=== PATIENT | male | born 1940 | race Caucasian/White ===

== ENCOUNTER 2023-05-02 12:30 | Inpatient (IN) | payer MEDICARE, OTHER ==
[~2023-05-02] VITALS: Ht 177.8 cm; Wt 89.4 kg
[2023-05-02] VITALS (14 sets, daily range): BP systolic 68–171; BP diastolic 42–102
[2023-05-02 13:04] LABS: PCO2 Arterial 48.7 mmHg (35-45); PO2 Arterial 38 mmHg (80-100); pH Blood Arterial 6.96 (7.35-7.45)
[2023-05-02 13:23] LABS: BASOPHILS ABSOLUTE AUTO 0.13 K/mm3 (0.00-0.23); BASOPHILS PERCENT AUTO 1 % (0-2); Hematocrit 40.5 % (37.0-53.0); Hemoglobin 12.4 g/dL (13.5-17.5); LYMPHOCYTES ABSOLUTE AUTO 5.29 K/mm3 (0.84-5.20); LYMPHOCYTES PERCENT AUTO 29 % (21-46); MONOCYTES ABSOLUTE AUTO 0.46 K/mm3 (0.16-1.47); MONOCYTES PERCENT AUTO 3 % (4-13); Mean Corpuscular HGB 32.2 pg (26.0-34.0); Mean Corpuscular HGB Conc 30.6 g/dL (31.5-36.5); Mean Corpuscular Volume 105 fL (80-100); Mean Platelet Volume 10.4 fL (9.1-12.4); NRBC ABSOLUTE 0.02 K/mm3 (0.00-0.02); NRBC Auto 0.1 /100 WBC (0.0-0.2); Platelet Count 201 K/mm3 (150-400); RDW Coefficient Variation 12.4 % (11.7-14.2); RDW Standard Deviation 48.6 fL (35.1-46.3); Red Blood Cell Count 3.85 M/mm3 (4.30-5.90); White Blood Cell Count 18.29 K/mm3 (4.00-11.30)
--- NOTE | 2023-05-02 13:25 | NUR ---
Pt. is intubated and being treated in ED26. AMISHA Philippe is in consult room and she welcomes my visit. Facilitate a short life review and update. Normalized the Pt. experience. LP displayed evidencee of genuine concern. Stay in consult room for some time. LP verbalized gratitude for the spiritual care visit. Will remain available to Pt. and family.
[2023-05-02 13:49] LABS: Albumin, Blood 2.4 g/dL (3.4-5.0); Albumin/Globulin Ratio 0.7 (0.8-1.8); Bilirubin, Total 0.4 mg/dL (0.1-1.0); Bun/Creatinine Ratio 30.2 (12.0-20.0); Creatinine, Blood 1.72 mg/dL (0.60-1.20); Globulin, Blood 3.5 g/dL (2.2-4.0); Potassium, Blood 4.8 mmol/L (3.5-5.5); Total Protein, Blood 5.9 g/dL (6.4-8.2)
[2023-05-02] MEDS ORDERED: NOVOLOG100 UNIT/2 SC (15:04)
[2023-05-02] MEDS ORDERED: LEVEMIR100 UNIT/1 SC (15:04)
[2023-05-02] MEDS ORDERED: LOSA50 PO (15:05)
[2023-05-02] MEDS ORDERED: TOPROL XL50 MG PO (15:05)
[2023-05-02] MEDS ORDERED: LEVOTHYROXINE13 MCG PO (15:13)
[2023-05-02] MEDS ORDERED: METF500 PO (15:13)
[2023-05-02 15:16] LABS: EOSINOPHILS ABSOLUTE AUTO 0.26 K/mm3 (0.00-0.68); EOSINOPHILS PERCENT AUTO 1 % (0-6); IMMATURE GRAN ABSOLUTE AUTO 1.31 K/mm3 (0.00-0.10); IMMATURE GRAN PERCENT AUTO 7 % (0-1); NEUTROPHILS ABSOLUTE AUTO 10.84 K/mm3 (1.96-9.15); NEUTROPHILS PERCENT AUTO 59 % (41-73)
[2023-05-02] MEDS ORDERED: FURO20 PO (15:27)
[2023-05-02] MEDS ORDERED: Aspir 8181 MG PO (15:27)
[2023-05-02] MEDS ORDERED: Amlodipine Bes2.5 MG PO (15:27)
[2023-05-02] MEDS ORDERED: ZOCOR20 MG PO (15:28)
[2023-05-02 16:00] LABS: BAND PERCENT MAN 12 % (0-8); BASOPHILS PERCENT MAN 0 % (0-2); EOSINOPHILS PERCENT MAN 0 % (0-6); LYMPHOCYTES ABSOLUTE MAN 4.93 K/mm3 (0.84-5.20); LYMPHOCYTES PERCENT MAN 27 % (21-46); METAMYELOCYTE ABSOLUTE MAN 0.36 K/mm3 (0.00-0.00); METAMYELOCYTE PERCENT MAN 2 % (0-0); MONOCYTES PERCENT MAN 0 % (4-13); MYELOCYTE ABSOLUTE MAN 0.54 K/mm3 (0.00-0.00); MYELOCYTE PERCENT MAN 3 % (0-0); NEUTROPHILS ABSOLUTE MAN 12.43 K/mm3 (1.96-9.15); SEG NEUTROPHILS PERCENT MAN 56 % (41-73); TOTAL CELLS COUNTED 100
--- NOTE | 2023-05-02 16:26 | NUR ---
SHIFT SUMMARY PT HAS BEEN RESTING IN BED THROUGHOUT THE DAY. SHE HASN'T HAD ANY RETCHING SINCE RECEIVING COMPAZINE THIS MORNING. SHE STILL IS NOT TAKING PO THOUGH. INSULIN GTT TURNED OFF AT NOON. IV FLUIDS SWITCHED TO NS AFTER 1600 BLOOD SUGAR WAS ABOVE [address] CROWDER EARLIER IN THE DAY. LUNGS ARE CLEAR, RA, SINUS TACH IN THE LOW 100S, BP STABLE. VOIDING INDEPENDENTLY. CONTINUING TO MONITOR.
--- NOTE | 2023-05-02 16:41 | NUR ---
"Spiritual Care | Palliative Nurse Request Pt. is in ED26. Daughter is present and activiely grieving. Facilitate life review and inquire about matters of lisa and belief of Pt. Daughter was unsettled about making the Pt. DNR without consulting family. Prayed over the Pt. and prayed for the family. Grandson arrived, and said goodbye to the Pt. Pt. is transerred to ICU13. Daughter has stepped outside to talk with family. Followed Pt. to ICU. Will remain available to Pt. and family."
--- NOTE | 2023-05-02 16:54 | NUR ---
Spoke with Dr Hemphill and discussed case. Pt to the ED due to cardiac arrest. Pt was down for approximately one hour. Pt's family may benefit from code status discussion. Pt resting on gurney, intubated, not sedated, and unresponsive. Pt's daughter Cici at bedside. This PC RN accompanied by PC RN Alissa. Supportive visit offered and confirmed daughters thoughts regarding Pt's prognosis. Discussed code status wishes and implications to performing CPR. Listened as daughter is wanting to speak with family regarding goals of care including code status. Supportive visit continued and listened as daughter discusses Pt's different family members. Daughter Cici reports her brother (Pt's son) has developmental delays and Pt's life partner Caro had to take him home due to being oeverwhelmed. Pt being transfered to ICU. Instructed Cici Palliative Care will F/U once Pt is in ICU. Spoke with Primary RN Dr Nasir Hahn and discussed case. Palliative Care will remain available
--- NOTE | 2023-05-02 17:41 | NUR ---
Spiritual Care Family Support Sat with Pts. daughter as Pt. was getting settled in ICU13. Discussions regarding a DNR decision were considered with daughter, and she felt more open to make a decision. Dr. Best met with daughter and throughly but gently communicated the serious condition the Pt. is in. The daughter werbalized to Dr. Best that she would like to "give it a day", but if the Pts. heart stopped to not impliment CPR. We brought daughter in to see the Pt. Daughter verbalized gratitude for the spiritual care support.
--- NOTE | 2023-05-02 18:00 | NUR ---
ADMIT PT ARRIVED FROM ED INTUBATED WITH LEVOPHED AND DOPAMINE INFUSING. PT NOT ON ANY SEDATION, LYING STILL WITH EYES OPEN, SPORADIC ARM TWITCHING OCCURRING AND AT THE SAME TIME PT'S EYES OPEN WIDER, THEN RELAX. DR. RUBIO TO THE BEDSIDE TO ASSESS PT. PUPILS FIXED AND DILATED, WITHDRAWS ARM FROM NAIL BED PRESSURE, BREATHING OVER THE VENTILATOR. 2MG ATIVAN GIVEN PER DR. RUBIO'S VO IN CASE THE TWITCHING IS SEIZURE ACTIVITY AND PROPOFOL STARTED. TWITCHING RESOLVED WITH THE ATIVAN. WITH PT LYING STILL, PULSE OX IS ABLE TO READ AND SPO2 LOW 90S. DR. RUBIO ALSO ORDERED TO START VASOPRESSIN AND TITRATE OFF DOPAMINE ABLE. PT'S GIOVANNA AT THE BEDSIDE AFTER HAVING DISCUSSION WITH DR. RUBIO.
--- NOTE | 2023-05-02 19:33 | NUR ---
ASSUMED CARE OF PT AT 1900 PT REMAINS ON VENTILATOR WITH NO PURPOSEFUL MOVEMENT. SOME MOVEMENT NOTED SIMILAR TO DECORTICATE POSTURING. PT DAUGHTER AT BEDSIDE DURING SHIFT REPORT. SOME REPORT DONE OUTSIDE OF ROOM D/T OBVIOUS STRESS OF DAUGHTER AT THIS TIME. DAUGHTER INVOLVED WITH SOME OF REPORT AND STATES THAT SHE IS AWARE OF HIS CURRENT DECLINE IN HEART RATE AND BP. SEE FULL ASSESSMENT FOR FURTHER INFORMATION.
[2023-05-03] VITALS (59 sets, daily range): BP systolic 74–163; BP diastolic 42–68
[2023-05-03] LABS: Glucose, Blood 664 mg/dL (70-99)
--- NOTE | 2023-05-03 01:06 | NUR ---
TEMP INCREASE PT TEMP HAS GRADUALLY INCREASED DURING STAY. SINCE THIS RN SHIFT START GLORIA BAGS AND FAN HAVE BEEN APPLIED TO PT GROIN AND AXILLARY AREAS. TYLENOL SUPPOSITORY GIVEN. TEMP CONTINUES TO INCREASE. COOLING BLANKET HAS BEEN INITIATED AT 0030. WILL CONTINUE TO MONITOR.
[2023-05-03 02:55] LABS: Glucose, Blood 678 mg/dL (70-99)
[2023-05-03 04:25] LABS: BASOPHILS ABSOLUTE AUTO 0.07 K/mm3 (0.00-0.23); BASOPHILS PERCENT AUTO 0 % (0-2); EOSINOPHILS ABSOLUTE AUTO 0.01 K/mm3 (0.00-0.68); EOSINOPHILS PERCENT AUTO 0 % (0-6); Hematocrit 35.5 % (37.0-53.0); Hemoglobin 11.6 g/dL (13.5-17.5); IMMATURE GRAN ABSOLUTE AUTO 0.28 K/mm3 (0.00-0.10); IMMATURE GRAN PERCENT AUTO 1 % (0-1); LYMPHOCYTES ABSOLUTE AUTO 1.15 K/mm3 (0.84-5.20); LYMPHOCYTES PERCENT AUTO 4 % (21-46); MONOCYTES ABSOLUTE AUTO 0.71 K/mm3 (0.16-1.47); MONOCYTES PERCENT AUTO 3 % (4-13); Mean Corpuscular HGB 32.3 pg (26.0-34.0); Mean Corpuscular HGB Conc 32.7 g/dL (31.5-36.5); Mean Platelet Volume 10.2 fL (9.1-12.4); NEUTROPHILS ABSOLUTE AUTO 24.04 K/mm3 (1.96-9.15); NEUTROPHILS PERCENT AUTO 92 % (41-73); NRBC ABSOLUTE 0.02 K/mm3 (0.00-0.02); NRBC Auto 0.1 /100 WBC (0.0-0.2); Platelet Count 189 K/mm3 (150-400); RDW Coefficient Variation 12.6 % (11.7-14.2); RDW Standard Deviation 45.5 fL (35.1-46.3); Red Blood Cell Count 3.59 M/mm3 (4.30-5.90); White Blood Cell Count 26.26 K/mm3 (4.00-11.30)
[2023-05-03 04:26] LABS: Bicarbonate Venous 13.3 mmol/L (24.0-30.0); pH Blood Venous 7.16 (7.34-7.37)
[2023-05-03 04:27] LABS: Mean Corpuscular Volume 99 fL (80-100)
[2023-05-03 05:03] LABS: Albumin, Blood 2.4 g/dL (3.4-5.0); Albumin/Globulin Ratio 0.8 (0.8-1.8); Bilirubin, Total 0.4 mg/dL (0.1-1.0); Bun/Creatinine Ratio 23.3 (12.0-20.0); Calcium, Blood 7.3 mg/dL (8.5-10.1); Creatinine, Blood 2.79 mg/dL (0.60-1.20); Potassium, Blood 7.1 mmol/L (3.5-5.5); Total Protein, Blood 5.4 g/dL (6.4-8.2)
[2023-05-03 06:39] LABS: Anion Gap 13 mmol/L (6-16); Blood Urea Nitrogen 65 mg/dL (8-24); Bun/Creatinine Ratio 22.8 (12.0-20.0); CO2, Blood 18 mmol/L (21-32); Calcium, Blood 7.1 mg/dL (8.5-10.1); Chloride, Blood 106 mmol/L (98-108); Creatinine, Blood 2.85 mg/dL (0.60-1.20); Glomerular Filtration Rate 22 (60-); Sodium, Blood 137 mmol/L (136-145)
[2023-05-03 06:40] LABS: Glucose, Blood 657 mg/dL (70-99)
--- NOTE | 2023-05-03 06:44 | NUR ---
END OF SHIFT SUMMARY PT STILL NOT FOLLOWING COMMANDS. PUPILS 3 GEOVANY WITH SLUGISH RETRACTION. RESPONDS TO PAINFUL STIMULI. PT DAUGHTER AT BEDSIDE ALL NIGHT. PT IS STILL WITH ANY REPOSITIONING OR TOUCH. PUSHS OR ULL WITH TOUCH OR TREATMENTS. EYES OPEN RANDOMLY BUT NOT WHEN TALKED TO. RESTRAINTS INITIATED THIS SHIFT D/T MOVEMENT OF HANDS TOWARDS VENT. CARDIAC- HR 30'S-40'S. VASOPRESSIN RUNNING WITH LEVOPHED AT 25 MCG SBP >100. SV ABDIEL THIS AM (THIS HAS CHANGED FROM AFIB AND MULTIPLE EXTOPY AT START OF SHIFT. RESP- REMAINS VENTILATED WITH SPO2 >93%. VENT SUCTION SPUTUM BROWN BLOOD WITH SOME RED TINGE. GI,- BERRY CATH DRAINING TO GRAVITY WITH SCAN URINE OUTPUT OF 250 THIS SHIFT. IV MEDICATIONS- LEVOPHED 25 MCG VASOPRESSIN 0.04 BICARB 75 MLS/HR. INSULIN 5 UNITS/HOUR. PROP 10 MCG WILL CONTINUE TO MONITOR UNTIL REPORT GIVEN TO AM RN.
[2023-05-03 08:21] LABS: Glucose, Blood 564 mg/dL (70-99)
--- NOTE | 2023-05-03 10:00 | NUR ---
PT INTUBATED AND LIGHTLY SEDATED WITH PROPOFOL. PT WILL OPEN EYE'S SPONT BUT DOES NOT TRACK. WITHDRAWS FROM PAINFUL STIMULUS. SPONT MOVES HANDS AND FEET. TITRATING LEVOPHED, ON VASOPRESSIN, AND DOPAMINE STARTED. PT IS BRADYCARDIC. DAUGHTER AT BEDSIDE EDUCATED PRN.
[2023-05-03 10:06] LABS: Calcium, Blood 7.2 mg/dL (8.5-10.1); Creatinine, Blood 3.04 mg/dL (0.60-1.20); Potassium, Blood 5.4 mmol/L (3.5-5.5)
[2023-05-03 12:39] LABS: Bun/Creatinine Ratio 21.9 (12.0-20.0); Calcium, Blood 7.4 mg/dL (8.5-10.1); Creatinine, Blood 3.1 mg/dL (0.60-1.20); Potassium, Blood 4.9 mmol/L (3.5-5.5)
--- NOTE | 2023-05-03 13:32 | NUR ---
PT TAKEN TO CT AND BACK.
--- NOTE | 2023-05-03 15:20 | NUR ---
Pt resting in bed, intuabed, and about to start EEG. Spoke with Primary RN Alee and discussed case. Met with Pt's daughter Cici out in ICU hallway. Offered supportive visit and therapeutic listening. Cici expresses appreciation and reports no new concerns at this time. Palliative Care will remain available
--- NOTE | 2023-05-03 16:51 | NUR ---
Spiritual Care Family Support Pt. is intubated and not responsive. Daughter is at bedside and welcomes my visit. Facilitated discussion about Pts. status and ask guided questions with regard to the families expecations and emotional status. Help daughter feel comforted and supported. Daughter verbalized gratitude for the spiritual care visits and prayers that were given.
--- NOTE | 2023-05-03 17:39 | NUR ---
SUMMARY PT INTUBATED. SEDATION OFF SINCE EEG WAS DONE THIS AFTERNOON. PT OPENS EYE'S SPONT AND WILL WITHDRAW FROM PAINFUL STIMULUS. SPONT MOVES ALL EXTREMITIES WELL. CT OF HEAD, EEG, AND ECHO COMPLETE TODAY. HAVE COOLING BLANKET ON. PT HAS LOW GRADE TEMP AFTER COOLING BLANKET WAS OFF FOR EEG AND ECHO THIS AFTERNOON. TITRATING LEVOPHED AND DOPAMINE, ALSO HAS VASOPRESSIN RUNNING. HR IN THE 50'S AFTER DOPAMINE STARTED. ON INSULIN GTT AND GLUCOSE IMPROVING. DAUGHTER AT BEDSIDE TODAY AND UPDATED T/O THE DAY.
[2023-05-03] MEDS ORDERED: Primidone50 MG PO (18:45)
[2023-05-03] MEDS ORDERED: JARDIANCE10 MG PO (18:46)
[2023-05-03] MEDS ORDERED: SODBIC650 PO (18:47)
[2023-05-03] MEDS ORDERED: ASCO500 PO (18:47)
[2023-05-03] MEDS ORDERED: B-12500 MC2 PO (18:48)
[2023-05-03] MEDS ORDERED: ERGO50000 PO (18:48)
[2023-05-03] MEDS ORDERED: LACT PO (18:49)
[2023-05-04] VITALS (58 sets, daily range): BP systolic 77–139; BP diastolic 41–83
[2023-05-04 04:21] LABS: BASOPHILS ABSOLUTE AUTO 0.02 K/mm3 (0.00-0.23); BASOPHILS PERCENT AUTO 0 % (0-2); EOSINOPHILS ABSOLUTE AUTO 0.01 K/mm3 (0.00-0.68); EOSINOPHILS PERCENT AUTO 0 % (0-6); Hematocrit 27.8 % (37.0-53.0); Hemoglobin 9.5 g/dL (13.5-17.5); IMMATURE GRAN ABSOLUTE AUTO 0.14 K/mm3 (0.00-0.10); IMMATURE GRAN PERCENT AUTO 1 % (0-1); LYMPHOCYTES ABSOLUTE AUTO 1.21 K/mm3 (0.84-5.20); LYMPHOCYTES PERCENT AUTO 8 % (21-46); MONOCYTES ABSOLUTE AUTO 0.36 K/mm3 (0.16-1.47); MONOCYTES PERCENT AUTO 3 % (4-13); Mean Corpuscular HGB 32.4 pg (26.0-34.0); Mean Corpuscular HGB Conc 34.2 g/dL (31.5-36.5); Mean Corpuscular Volume 95 fL (80-100); NEUTROPHILS ABSOLUTE AUTO 12.89 K/mm3 (1.96-9.15); NEUTROPHILS PERCENT AUTO 88 % (41-73); NRBC ABSOLUTE 0.02 K/mm3 (0.00-0.02); NRBC Auto 0.1 /100 WBC (0.0-0.2); Platelet Count 132 K/mm3 (150-400); RDW Coefficient Variation 12.8 % (11.7-14.2); RDW Standard Deviation 43.7 fL (35.1-46.3); Red Blood Cell Count 2.93 M/mm3 (4.30-5.90); White Blood Cell Count 14.63 K/mm3 (4.00-11.30)
[2023-05-04 04:37] LABS: Bun/Creatinine Ratio 21.3 (12.0-20.0); Calcium, Blood 7.2 mg/dL (8.5-10.1); Creatinine, Blood 3.34 mg/dL (0.60-1.20); Potassium, Blood 4.5 mmol/L (3.5-5.5)
--- NOTE | 2023-05-04 05:36 | NUR ---
END OF SHIFT SUMMARY INTUBATED WITH SO SEDATION. DAUGHTER AT BEDSIDE ALL THIS SHIFT. LEVOPHED ON SB WITH VASOPRESSIN STILL RUNNING 0.04 UNITS. HR 60'S NO NEURO CHANGES THIS SHIFT. 450 MLS URINE OUTPUT THIS SHIFT. INSULIN DRIP AT 6 UNITS/HR. UNABLE TO TITRATE DOWN D/T INCREASED CBG RESULTING. NO BM THIS SHIFT. NO OTHER ACUTE CHANGES TO REPORT. WILL CONTINUE TO MONITOR UTIL REPORT GIVEN TO AM RN.
--- NOTE | 2023-05-04 17:45 | NUR ---
SUMMARY PT INTUBATED, NO SEDATION. OPENS EYE'S SPONT AND MOVES ALL EXTREMITIES SPONT. WITHDRAWS FROM PAINFUL STIMULUS WELL. NO TRACKING WITH EYE'S. ON DOPAMINE. LEVOPHED AND VASOPRESSIN HAVE BEEN TITRATED OFF. OFF OF INSULIN GTT MOST OF THE DAY D/T GLUCOSE OF 47 THIS AM. SLOWLY GLUCOSE INCREASING THE DAY WENT ON. DR. BUCHANAN SAID TO START INSULIN GTT BACK AT 2 UNITS/HR. DAUGHTER AT BEDSIDE STATES PT HAS LABILE GLUCOSE AT BASELINE. NO OTHER ACUTE CHANGES TODAY. DAUGHTER AT BEDSIDE ALL DAY.
[2023-05-05] VITALS (44 sets, daily range): BP systolic 109–179; BP diastolic 46–65
--- NOTE | 2023-05-05 04:22 | NUR ---
PT HAS SMALL AMMOUNT OF BLOODY SECRETIONS FROM EYES DURING BED BATH THIS SHIFT. TEMPERATURE AT START OF SHIFT 101.3 WITH ICE PACKS UNDER AXILARY AREAS AND GROIN AREAS WELL COOLING BLANKET WITH COOLING MACHINE ON HIGH. TEMP IS NOW 97.9 AND CONT TO DECREASE WITH NO ICE OR COOLING BLANKET. BLOOD PRESSURE HAS RISEN UP TO A SYSTOLIC OF 150 WELL. DOPAMINE DECREASED TO 4 FROM 6 WITH LEVOPHED AND VASOPRESSIN ON SB. HR IS FLUCTUATING BETWEEN 60'S-90'S IN AFIB LIKE RYTHM. SMALL RUN OF V-TACH THIS AM WELL. MINIMAL ORAL SECRETIONS WITH SUCTIONING. NO CHANGES IN RESP STATUS. REMAINS VENTED WITHOUT SEDATION. CHEST X-RAY DELAYED D/T CONCERN FOR NEED AT THIS TIME. PT CONTINUES TO GAZE TO THE RIGHT WITH NO MOVEMENT OF EYES. MINIMAL CLOSING OF THE EYE LIDS. PT DAUGHTER AT BEDSIDE ALL NIGHT. INSULIN AT 2 UNITS/HR.
[2023-05-05 04:45] LABS: BASOPHILS ABSOLUTE AUTO 0.02 K/mm3 (0.00-0.23); BASOPHILS PERCENT AUTO 0 % (0-2); EOSINOPHILS ABSOLUTE AUTO 0.02 K/mm3 (0.00-0.68); EOSINOPHILS PERCENT AUTO 0 % (0-6); Hematocrit 27.3 % (37.0-53.0); IMMATURE GRAN ABSOLUTE AUTO 0.12 K/mm3 (0.00-0.10); IMMATURE GRAN PERCENT AUTO 1 % (0-1); LYMPHOCYTES ABSOLUTE AUTO 1.31 K/mm3 (0.84-5.20); LYMPHOCYTES PERCENT AUTO 9 % (21-46); MONOCYTES ABSOLUTE AUTO 0.31 K/mm3 (0.16-1.47); MONOCYTES PERCENT AUTO 2 % (4-13); Mean Corpuscular HGB 31.8 pg (26.0-34.0); Mean Corpuscular Volume 97 fL (80-100); Mean Platelet Volume 10.7 fL (9.1-12.4); NEUTROPHILS ABSOLUTE AUTO 12.33 K/mm3 (1.96-9.15); NEUTROPHILS PERCENT AUTO 87 % (41-73); NRBC ABSOLUTE 0.02 K/mm3 (0.00-0.02); NRBC Auto 0.1 /100 WBC (0.0-0.2); Platelet Count 139 K/mm3 (150-400); RDW Standard Deviation 45.1 fL (35.1-46.3); Red Blood Cell Count 2.83 M/mm3 (4.30-5.90); White Blood Cell Count 14.11 K/mm3 (4.00-11.30)
[2023-05-05 05:08] LABS: Albumin, Blood 2.4 g/dL (3.4-5.0); Anion Gap 11 mmol/L (6-16); Blood Urea Nitrogen 75 mg/dL (8-24); Bun/Creatinine Ratio 21.3 (12.0-20.0); CO2, Blood 22 mmol/L (21-32); Calcium, Blood 7.3 mg/dL (8.5-10.1); Chloride, Blood 111 mmol/L (98-108); Creatinine, Blood 3.52 mg/dL (0.60-1.20); Glomerular Filtration Rate 17 (60-); Glucose, Blood 162 mg/dL (70-99); Magnesium, Blood 2.4 mg/dL (1.6-2.4); Phosphorus, Blood 5.1 mg/dL (2.5-4.9); Potassium, Blood 3.7 mmol/L (3.5-5.5); Sodium, Blood 144 mmol/L (136-145)
--- NOTE | 2023-05-05 18:32 | NUR ---
SUMMARY PT INTUBATED, NO SEDATION. WITHDRAWS FROM PAINFUL STIMULUS, OTHERWISE UNRESPONSIVE. HAS EYE'S OPEN SPONT BUT WILL BLINK. OFF DOPAMINE GTT THIS AM. HR REMAINS IN THE 60'S-70'S. OFF INSULIN GTT, NOW DOING Q6HR CBG CHECKS AND Q6H INSULIN COVERAGE. PT HAS HAD PERSISTENT FEVER TODAY. TYLENOL GIVEN X2, ICE PACKS TO GROIN, NECK AND AXILLARY, WELL COOLING BLANKET. DR. BUCHANAN AWARE. TACHYPNEIC WITH REPOSITIONING THIS EVENING, GAVE FENTANYL WHICH HELPED A LITTLE. DAUGHTER AT BEDSIDE ALL DAY AND UPDATED T/O DAY.
--- NOTE | 2023-05-05 20:12 | NUR ---
ASSUMED CARE OF PT AT 1900 PT VENTED WITH DAUGHTER AND FRIEND AT BEDSIDE DURING REPORT. PT DAUGHTER IS TALKING ABOUT COMFORT CARE WITHIN A FEW HOURS. SBP 170'S. COOLING BLANKET IN PLACE OVER TORSO AREA. TEMP CURRENTLY 101.3. ICE BAGS ARE IN PLACE UNDER ARMS WELL. HR 70'S WITH AFIB RHYTHM. SPO2 96% SEE FULL ASSESSMENT FOR FURTHER INFORMATION.
--- NOTE | 2023-05-06 00:06 | NUR ---
TIME OF 5977
--- NOTE | 2023-05-06 01:30 | NUR ---
0045 CALLED DONOR LINE- PT RELEASED FOR HOME. SEE DOCUMENTATION ON FINAL DISCHARGE INTERVENTIONS FOR INFORMATION. 0050 [facility] CALLED FOR PT CASTING FINISHER. PAM FROM [facility] HERE FOR PT. ALL LINES DC'D FROM PT PRIOR TO RELEASE.
== END 2023-05-05 23:53 | DRG 208 ==
LOC: ER 12:30 → ICUE 15:07
PROVIDERS: Emergency Medicine; Internal Medicine; Internal Medicine Critical Care Medicine; ADMIT Internal Medicine
PROC: 5A1945Z Respiratory Ventilation, 24-96 Consecutive Hours (ICD-10-PCS; principal; 2023-05-02)
PROC: 0BH17EZ Insertion of Endotracheal Airway into Trachea, Via Natural or Artificial Opening (ICD-10-PCS; 2023-05-02)
PROC: 3E033XZ Introduction of Vasopressor into Peripheral Vein, Percutaneous Approach (ICD-10-PCS; 2023-05-02)
PROC: 02HV33Z Insertion of Infusion Device into Superior Vena Cava, Percutaneous Approach (ICD-10-PCS; 2023-05-02)
PROC: 4A033R1 Measurement of Arterial Saturation, Peripheral, Percutaneous Approach (ICD-10-PCS; 2023-05-02)
DX: T17.920A Food in respiratory tract, part unspecified causing asphyxiation, initial encounter (principal); G93.41 Metabolic encephalopathy; J96.01 Acute respiratory failure with hypoxia; J96.02 Acute respiratory failure with hypercapnia; J69.0 Pneumonitis due to inhalation of food and vomit; I21.A1 Myocardial infarction type 2; E87.20 Acidosis, unspecified; G93.1 Anoxic brain damage, not elsewhere classified; N17.9 Acute kidney failure, unspecified; I46.8 Cardiac arrest due to other underlying condition; Z51.5 Encounter for palliative care; Z66 Do not resuscitate; R57.0 Cardiogenic shock; R77.8 Other specified abnormalities of plasma proteins; I12.9 Hypertensive chronic kidney disease with stage 1 through stage 4 chronic kidney disease, or unspecified chronic kidney disease; E11.22 Type 2 diabetes mellitus with diabetic chronic kidney disease; N18.30 Chronic kidney disease, stage 3 unspecified; E03.9 Hypothyroidism, unspecified; E78.5 Hyperlipidemia, unspecified; E66.9 Obesity, unspecified; G47.33 Obstructive sleep apnea (adult) (pediatric); I44.7 Left bundle-branch block, unspecified; K21.9 Gastro-esophageal reflux disease without esophagitis; E11.40 Type 2 diabetes mellitus with diabetic neuropathy, unspecified; E11.51 Type 2 diabetes mellitus with diabetic peripheral angiopathy without gangrene; E11.65 Type 2 diabetes mellitus with hyperglycemia; R74.01 Elevation of levels of liver transaminase levels; E87.5 Hyperkalemia; Z91.199 Patient's noncompliance with other medical treatment and regimen due to unspecified reason; Z88.1 Allergy status to other antibiotic agents; Z88.2 Allergy status to sulfonamides; Z79.82 Long term (current) use of aspirin; Z79.4 Long term (current) use of insulin
CPT/HCPCS: 31500; 36556; 36600; 51702; 70496; 71045; 80048; 80053; 80069; 82803; 82947; 83605; 83735; 83880; 84145; 84484; 85025; 93005; 93010; 94002; 94003; 94640; 94664; 95819; 96365; 96366; 99285-25; A9270; C8929; C9113; J0461; J1265; J1650; J1815; J2060; J2543; J2704; J3010; J7030; J7050; J7060; Q9957; Q9967